=== PATIENT | female | born 1990 | race Two or more races ===

== ENCOUNTER → 2018-10-21 | Emergency (ER) | payer OTHER ==
[~2018-10-21] VITALS: Ht 162.6 cm; Wt 64.4 kg
[~2018-10-21] MED LIST: NAPROXEN500 MG PO; VISTARIL25 MG PO
== END | disposition left against medical advice (07) ==
LOC: ER 15:22
DX: M62.838 Other muscle spasm (principal); M94.0 Chondrocostal junction syndrome [Tietze]